=== PATIENT | male | born 1995 | race Two or more races ===

== ENCOUNTER 2024-01-22 15:47 | Emergency (ER) | payer MEDICAID ==
[~2024-01-22] VITALS: Ht 175.3 cm; Wt 136.0 kg
[2024-01-22] MEDS: ALBUTEROL SULF 2.5 MG/0.5ML(0.5%) NEB SOLN NEB ONE (16:37)
[2024-01-22] MEDS: IPRATROPIUM BROM 0.5 MG/2.5ML INH SOL NEB ONE (16:37)
[2024-01-22] MEDS ORDERED: LORA10CA PO (19:20)
[2024-01-22] MEDS ORDERED: ALBU108A5 IN (19:20)
[2024-01-22] MEDS ORDERED: BENZ100C97 PO (19:20)
[2024-01-22 20:00] VITALS: BP 128/92; PULSE 62; RESP 19; TEMP 98; O2SAT 98
[2024-01-22] MEDS: DexAMETHasone SOD PHOS 10MG/1ML VIAL INJ IM ONE (20:05)
== END 2024-01-22 20:10 | disposition home or self-care (01) ==
LOC: ER 15:47
DX: J06.9 Acute upper respiratory infection, unspecified (principal); R06.02 Shortness of breath; J45.909 Unspecified asthma, uncomplicated
CPT/HCPCS: 71046; 94640; 96372; 99283; J1100; J7644